=== PATIENT | female | born 1970 | race Caucasian/White ===

== ENCOUNTER 2016-09-29 09:09 | Emergency (ER) | payer OTHER ==
[2016-09-29] MEDS ORDERED: Ibuprofen TAB* 600 MG PO ONE (09:43)
--- NOTE | 2016-09-29 10:18 | UC ---
General HPI - HPI Summary HPI Summary: fell down stairs 3 days ago, right back pain into the the shoulder. She fell down 3 or 4 outdoor steps and has pain in right upper back and right low back. no bruising, no bleeding. tool a flexiril last night. sx worse yesterday and today. On nucynta for chronic pain for right hanstring tear 4 yrs ago (whil slipping on grass into a split). She was not offered surgery. Had been on pain meds and noted that she was getting addicted and she stopped them cold turkep about 1 yr ago. She met the pain Dr about 1 mo ago and started her on nucynta a nd flexiril with good relief. She does note that she is more prone to falling since the hanstring tear. no parasthesias in arms or legs. - History of Current Complaint Chief Complaint: UCBackPain Stated Complaint: BACK & SHOULDER PAIN-FALL Time Seen by Provider: 09/29/16 10:07 - Allergy/Home Medications Allergies/Adverse Reactions: Allergies Allergy/AdvReac Type Severity Reaction Status Date / Time Penicillin V Allergy Mild Unknown Verified 09/29/16 09:26 [From Yvette VK] Reaction Details Home Medications: Home Medications Tapentadol HCl [Nucynta] 50 mg PO QID 09/29/16 [History Confirmed 09/29/16] PMH/Surg Hx/FS Hx/Imm Hx Previously Healthy: Yes Endocrine History Of: Denies: Diabetes Cardiovascular History Of: Denies: Cardiac Disorders Respiratory History Of: Denies: Asthma - Surgical History Surgical History: Yes Surgery Procedure, Year, and Place: appendectomy 1986; left wrist benign surgeries x 2. Tubal ligation, Cholecystectomy 02/2015 - Family History Known Family History: Positive: Hypertension - Social History Alcohol Use: Rare Substance Use Type: None Smoking Status (MU): Never Smoked Tobacco Household Exposure Type: Cigarettes - Immunization History Most Recent Influenza Vaccination: [id number] Review of Systems Constitutional: Negative Skin: Negative Eyes: Negative ENT: Negative Respiratory: Negative Cardiovascular: Negative Gastrointestinal: Negative Genitourinary: Negative Motor: Other - pain right upper and lower back Neurovascular: Negative Musculoskeletal: Negative Neurological: Negative Psychological: Negative All Other Systems Reviewed And Are Negative: Yes Physical Exam Triage Information Reviewed: Yes Appearance: Well-Nourished - very pleasant., Pain Distress Vital Signs: Initial Vital Signs Temp 98.4 F 09/29/16 09:20 Pulse 101 09/29/16 09:20 Resp 18 09/29/16 09:20 BP 148/81 09/29/16 09:20 Pulse Ox 100 09/29/16 09:20 Vital Signs Reviewed: Yes Eye Exam: Normal ENT Exam: Normal Neck exam: Normal Neck: Positive: Supple, Nontender, No Lymphadenopathy Respiratory Exam: Normal Respiratory: Positive: Lungs clear, Normal breath sounds, No respiratory distress, No accessory muscle use, Other: - No decrease in breath sounds in areas of pain/concern.. Negative: Plerual rub Cardiovascular Exam: Normal Cardiovascular: Positive: RRR, No Murmur, Pulses Normal, Brisk Capillary Refill Abdomen Description: Positive: Nontender, Soft Musculoskeletal: Positive: Other: - slight tenderness in rt upper and lower back. FROM Rt arm and rt leg. strength and sensation are grossly intact with brisk CR. no bruising, no erythema, cool to touch. no point tenderness over T or lumbar spine. Neurological Exam: Normal Psychological Exam: Normal Skin Exam: Normal Course/Dx - Course Course Of Treatment: Xray of rt ribs, t spine & L spine are read as negative. cont with flexiril and nucynta as prescribed. Ice as it helps more than heat. - Differential Dx - Multi-Symptom Provider Diagnoses: Rt upper and lower back strains/contussions. Discharge - Discharge Plan Condition: Stable Disposition: HOME Patient Education Materials: Muscle Spasm (ED) Forms: *Work Release Referrals: Vahid WOODS,Luciano [Primary Care Provider] - Additional Instructions: We have given you a list of PCPs to go to for follow up. Xrays were read as negative. You can call your pain specialist to make hermila eit is ok for you to continue to take ibuprofen 600mgs every 8 hrs as needed. The cyclobenzaprine and nucynta will help as well. Ice and rest. I think your symptoms will get better over the next few days.
--- NOTE | 2016-09-29 11:23 | RAD ---
HISTORY: Right thoracic pain, subacute trauma COMPARISONS: None VIEWS: 4, Frontal view of the chest with frontal and oblique views of the right hemithorax. FINDINGS: There is no displaced rib fracture or pneumothorax. The visualized lungs are clear. IMPRESSION: NO DISPLACED RIB FRACTURE OR PNEUMOTHORAX
--- NOTE | 2016-09-29 11:24 | RAD ---
HISTORY: The right thoracic pain COMPARISONS: None VIEWS: 2, Frontal and lateral views of the thoracic spine. FINDINGS: ALIGNMENT: The alignment is normal. VERTEBRAL BODIES: The vertebral body heights are normal. The interpedicular distances are normal. There is mild anterolateral marginal osteophyte formation. JOINTS: Unremarkable. INTERVERTEBRAL DISCS: There is diffuse loss of intervertebral disc height. SOFT TISSUE: Unremarkable OTHER: The visualized lungs are clear. IMPRESSION: MILD DEGENERATIVE CHANGES
--- NOTE | 2016-09-29 11:29 | RAD ---
HISTORY: Thoracic pain COMPARISONS: None VIEWS: 4 , Frontal, lateral, and bilateral oblique views of the lumbar spine. FINDINGS: ALIGNMENT: The alignment is normal. VERTEBRAL BODIES: The vertebral body heights are normal. The interpedicular distances are normal. There is mild anterolateral marginal osteophyte formation. JOINTS: There is facet hypertrophic change INTERVERTEBRAL DISCS: There is diffuse loss of intervertebral disc height. SOFT TISSUE: Unremarkable. OTHER: The pelvis is unremarkable. The lung bases are clear. Surgical clips are noted within the pelvis IMPRESSION: MILD DEGENERATIVE CHANGES
[2016-09-29 12:05] VITALS: BP 149/95
== END 2016-09-29 12:05 | disposition home or self-care (01) ==
LOC: UCCORT 09:09
DX: S29.012A Strain of muscle and tendon of back wall of thorax, initial encounter (principal); S39.012A Strain of muscle, fascia and tendon of lower back, initial encounter; S20.229A Contusion of unspecified back wall of thorax, initial encounter; W10.9XXA Fall (on) (from) unspecified stairs and steps, initial encounter; Y93.9 Activity, unspecified; Y92.9 Unspecified place or not applicable; Z88.0 Allergy status to penicillin; Z90.49 Acquired absence of other specified parts of digestive tract; Z77.22 Contact with and (suspected) exposure to environmental tobacco smoke (acute) (chronic)
CPT/HCPCS: 72070; 72110; 99212; A9270-GY; G0463

== ENCOUNTER 2017-10-29 11:51 | Emergency (ER) | payer OTHER ==
[2017-10-29 12:29] VITALS: BP 157/97
--- NOTE | 2017-10-29 13:08 | UC ---
Complaint Female HPI - HPI Summary HPI Summary: Pt c/o sudden onset of dysuria yesterday morning. Pt states "it feels like razor blades when I urinate". Pt began taking OTC AZO. - History Of Current Complaint Chief Complaint: UCGU Stated Complaint: URINARY Time Seen by Provider: 10/29/17 12:43 Hx Obtained From: Patient Hx Last Menstrual Period: unknown due to micronor control ?: No Onset/Duration: Sudden Onset, Lasting Days, Still Present Timing: Constant Severity Initially: Mild Severity Currently: Moderate Pain Intensity: 8 Character: Sharp, Burning Aggravating Factor(s): Urination Associated Signs And Symptoms: Positive: Negative - Risk Factors Ectopic Risk Factor: Negative Ovarian Torsion Risk Factor: Negative - Allergies/Home Medications Allergies/Adverse Reactions: Allergies Allergy/AdvReac Type Severity Reaction Status Date / Time penicillin V Allergy Mild Unknown Verified 10/29/17 12:30 Reaction Details PMH/Surg Hx/FS Hx/Imm Hx Previously Healthy: Yes - Surgical History Surgical History: Yes Surgery Procedure, Year, and Place: appendectomy 1986; left wrist benign surgeries x 2. Tubal ligation, Cholecystectomy 02/2015 - Family History Known Family History: Positive: Hypertension - Social History Occupation: Employed Full-time Lives: With Family Alcohol Use: Occasionally Alcohol Amount: 1 drink per week Substance Use Type: None Smoking Status (MU): Never Smoked Tobacco Have You Smoked in the Last Year: No Household Exposure Type: Cigarettes - Immunization History Most Recent Influenza Vaccination: [id number] Review of Systems Constitutional: Negative Skin: Negative Eyes: Negative ENT: Negative Respiratory: Negative Cardiovascular: Negative Gastrointestinal: Negative Genitourinary: Dysuria, Frequency, Urgency Motor: Negative Neurovascular: Negative Musculoskeletal: Negative Neurological: Negative Psychological: Negative Is Patient Immunocompromised?: No All Other Systems Reviewed And Are Negative: Yes Physical Exam Triage Information Reviewed: Yes Appearance: Well-Appearing Vital Signs: Initial Vital Signs Temp 98.5 F 10/29/17 12:21 Pulse 96 10/29/17 12:21 Resp 18 10/29/17 12:21 BP 157/97 10/29/17 12:21 Pulse Ox 98 10/29/17 12:21 Vital Signs Reviewed: Yes Eye Exam: Normal ENT: Positive: Hearing grossly normal Dental Exam: Normal Neck exam: Normal Respiratory Exam: Normal Cardiovascular Exam: Normal Abdominal Exam: Normal Musculoskeletal Exam: Normal Neurological Exam: Normal Psychological Exam: Normal Skin Exam: Normal Complaint Female Dx - Differential Dx/Diagnosis Differential Diagnosis/HQI/PQRI: Urinary Tract Infection Provider Diagnoses: Dysuria Discharge - Sign-Out/Discharge Documenting (check all that apply): Discharge/Admit/Transfer - Discharge Plan Condition: Stable Disposition: HOME Prescriptions: Sulfamethox/Trimethoprim DS* [Bactrim DS 800/160 TAB*] 1 tab PO Q12H #10 tab Patient Education Materials: Dysuria (ED) Referrals: Jordan Guerrero MD [Primary Care Provider] - If Needed - Billing Disposition and Condition Condition: STABLE Disposition: HOME
== END 2017-10-29 13:16 | disposition home or self-care (01) ==
LOC: UCCORT 11:51
DX: R30.0 Dysuria (principal); Z88.0 Allergy status to penicillin
CPT/HCPCS: 87077; 87086; 87186; 99212; G0463

== ENCOUNTER 2018-05-20 11:04 | Emergency (ER) | payer OTHER ==
--- OUTSIDE RECORDS SUMMARY | 2018-05-20 11:18 | XMS REPORT ---
:1970 External Reference #:[id number] Author Organization [facility] Address [address], [address] [place] [address] Phone [phone] Care Team Providers Name Role Phone Jordan Guerrero MD Care Team Information Chicken Hanger Unavailable Jordan Guerrero MD Primary Care Physician Unavailable Payers Type Date Identification Numbers Payment Provider Subscriber Commercial Effective: Policy Number: Lifetime Benefit Mari Garcia 2016 [id number] Solution PayID: Starriser [address] [address] [place] [address] Commercial Effective: 2006 Policy Number: Lifetime Benefit Mari Garcia [id number] Solution Expires: 2016 PayID: Starriser [address] [address] [place] [address] Problems Date Description Provider Status Onset: 04/27/2014 Acute cholecystitis Rafal Paredes MD Active Onset: 08/11/2014 Arthralgia of the pelvic region and Rafal Alas, D.O. Active thigh Onset: 02/12/2018 Constipation Tristen Osborne MD Active Onset: 02/12/2018 Right lower quadrant pain Tristen Osborne MD Active Family History Date Family Member(s) Problem(s) Comments General Stroke General Lung Cancer Father 76 Father due to Diabetes () Father Parkinson's Disease Mother 75 Mother Diverticulosis First Sister Hypothyroidism First Sister Ovarian Cancer DIAGNOSED AT AGE 35 First Sister Hypertension Maternal Aunts due to Ovarian Cancer () - AGE 42 Social History Type Date Description Comments Marital Status Single Lives With Home Environment Lives With fiance Diet Patient follows no dietary restrictions 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 Abuse No history of abuse Cigarette Use Never Smoked Cigarettes Smokeless Tobacco Never Used Smokeless Tobacco ETOH Use Currently consumes alcohol socially Recreational Drug Use Denies Drug Use Smoking Patient has never smoked Daily Caffeine Consumes on average 2 cups of regular coffee per day Enjoy Exercising Patient enjoys exercising Currently Active Patient is currently sexually active Contraceptive Methods Current methods include oral contraceptives Age 1st [place] 18 Years Old # Partners in a Lifetime 2 # Partners in a Lifetime Has been with current partner 15 YEARS WITH CURRENT for over 10 years PARTNER STD's No STD History Allergies, Adverse Reactions, Alerts Date Description Reaction Status Severity Comments 02/12/2018 Penicillin active 06/20/2010 NKDA inactive Medications Medication Date Status Form Strength Qnty SIG Indications Ordering Provider Colace 03/12 Active Capsules 100mg 60cap 1 by mouth K59.00 s daily and can Tristen, take twice a MD day as needed Lactulose 03/12 Active Solution 20GM/30ML 90ml by mouth K5. three times a Tristen day as needed Lactulose 02/12 Active Solution 20GM/30ML 900ml 15 K5 milliliters , Tristen by mouth twice a day as needed Cyclobenzaprine 12/03 Active Tablets 5mg 40tab 1 [facility] mouth [facility] and kim Skinner MD, FACS Nucynta Active Tablets 50mg 1 tab every 6 Unknown /0000 hours as needed. Senna S Active Tablets 8.6-50mg 1 tabl by Unknown /0000 mouth twice a day as needed for constipation Golytely 02/12 Hx Solution 236gm 4000m drink half R10. Rec l the evening Tristen, - before and 03/12 half the morning of the procedure (1 cup every 10') Dulcolax 02/12 Hx Tablets 5mg 4tabs [address] pura lamb 8pm Tristen, - the day 03/12 before the procedure Citroma 02/12 Hx Solution 1.745GM/3 296ml drink 1 R10. 0ML bottle at Tristen - 12pm 03/12 (noon)the day before the procedure Colace 02/12 Hx Capsules 100mg 60cap 1 by mouth K59.00 Dylon s daily and Tristen simental, - take twice a MD 03/12 day as needed Nortriptyline 08/07 Hx Capsules 25mg 30cap take 1 tab po Alas, s qhs Bradly Theodore.O. 02/12 Meloxicam 05/05 Hx Tablets 15mg 30tab 1 by mouth Alas, s every day Tremayne TheodoreO. 02/12 Hydrocodone-Acet 04/06 Hx Tablets 5-325mg 30tab 1 by mouth [place], aminophen s every 4 hours Rony, as needed Sav pain Skelaxin 12/23 Hx Tablets 800mg 60tab 1 po tid as Lawsing, s needed muscle Lorne Skinner, - spasms , FACS 01/27 Hydrocodone/Acet 12/11 Hx Tablets 5-325mg 40tab 1 by mouth Lawsing, aminophen s every 6 hours Lorne Skinner, - as needed , FACS 04/06 pain Naproxen 12/03 Hx Tablets 500mg 60tab 1 by mouth Lawsing, s twice a day Lorne Skinner, - with food , FACS 02/12 Prenate 07/07 Hx Capsules 28-0.6-0. 60cap 1 po qd [place], 4-340mg s Miri Wolf M.D. 07/07 Norethindrone 07/07 Hx Tablets 0.35mg 1Pack 1 po qd [place] Miri Wolf M.D. 02/12 Xanax Hx Tablets 1mg 1 tab po q hs Unknown /0000 - 02/12 Vital Signs Date Vital Result Comment 03/12/2018 BP Systolic Sitting Left Arm 160 mmHg BP Diastolic Sitting Left Arm 100 mmHg Heart Rate 78 /min Respiratory Rate 16 /min Height 64.5 inches 5'4.50" Weight 182.00 lb BMI (Body Mass Index) 30.8 kg/m2 BSA (Body Surface Area) 1.89 m2 Collins body weight in kilograms 56 02/12/2018 BP Systolic Sitting Left Arm 150 mmHg BP Diastolic Sitting Left Arm 100 mmHg Heart Rate 76 /min Respiratory Rate 16 /min Height 64.5 inches 5'4.50" Weight 179.00 lb BMI (Body Mass Index) 30.2 kg/m2 BSA (Body Surface Area) 1.88 m2 Collins body weight in kilograms 56 12/11/2013 BP Systolic Sitting Left Arm 134 mmHg BP Diastolic Sitting Left Arm 76 mmHg Height 64.5 inches 5'4.50" Weight 167.00 lb BMI (Body Mass Index) 28.2 kg/m2 BSA (Body Surface Area) 1.82 m2 06/20/2010 Heart Rate 69 /min Respiratory Rate 20 /min Height 63 inches 5'3" Weight 190.00 lb BMI (Body Mass Index) 33.7 kg/m2 Last Menstrual Period [id number] Results Test Date Test Result H/L Range Note Laboratory test finding 02/25/2018 Urine HCG NEGATIVE Negative 1, 2 (Qualitative) CBS W/Automated Diff 04/20/2014 White Blood Count 7.6 K/uL 3.1-10.7 Red Blood Count 4.71 M/uL 3.90-5.40 Hemoglobin 14.3 gm/dL 11.6-15.8 Hematocrit 41.2 % 36.0-46.1 Mean Cell Volume 87.5 fl 80.9-99.0 Mean Corpuscular HGB 30.4 pg 25.9-32.7 Mean Corpuscular HGB Conc 34.7 g/dL High 30.8-34.3 Platelet Count 307 K/uL 155-360 Red Cell Distri Width SD 39.8 fl 3-47 Red Cell Distri Width %CV 12.6 % 11.7-14.4 Mean Platelet Volume 9.9 fL 8.9-12.4 Neut% 76.4 % High 40.4-72.8 Lymph % 12.5 % Low 17.0-46.1 [place] % 8.4 % 4.3-13.2 Eo% 2.6 % 0.0-6.6 Bas% 0.1 % 0.0-1.1 Neut# 5.80 K/uL 1.0-7.0 Lymph # 0.95 K/uL 0.8-3.4 [place] # 0.64 K/uL 0.3-0.9 Eos # 0.20 K/uL 0.0-0.5 Baso # 0.01 K/uL 0.0-0.1 Comprehensive Metabolic Panel 04/20/2014 Glucose 126 mg/dL High 74-106 BUN 9 mg/dL 7-18 Creatinine 0.8 mg/dL 0.6-1.3 Glom Filtration Rate, Estimate >60 mL/min >60 If >60 mL/min >60 3 BUN/Creat 11.2 ratio Sodium 138 mmol/L 136-145 Potassium 3.7 mmol/L 3.5-5.1 Chloride 100 mmol/L 98-107 Carbon Dioxide 31 mmol/L 21-32 Anion Gap 11 mEq/L 8-16 Calcium 9.9 mg/dL 8.5-10.1 Total Protein 8.1 g/dL 6.4-8.2 Albumin 3.5 g/dL 3.4-5.0 Globulin 4.6 g/dL High 1.9-4.3 Alb/Glob 0.8 ratio Bilirubin,Total 0.4 mg/dL 0.2-1.0 Sgot/Ast 45 U/L High 15-37 SGPT/Alt 140 U/L High 12-78 Alkaline Phosphatase 81 U/L 45-117 Laboratory test finding 04/17/2014 Gallbladder See Note 4 Laboratory test finding 04/17/2014 Urine HCG (Qualitative) NEGATIVE Negative 5 Urine Screen 12/09/2013 Urine Color YELLOW Yellow Urine Clarity TURBID Clear Urine Glucose - Dipstick NEGATIVE mg/dL Negative Urine Bilirubin - Dipstick SMALL High Negative Urine Ketone NEGATIVE mg/dL Negative Urine Specific [place] >=1.030 1.010-1.030 Urine Blood NEGATIVE Negative Urine PH 5.5 Low 6.5-7.5 Urine Protein - Dipstick TRACE mg/dL Negative Urine Urobilinogen - Dipstick 0.2 E.U./dL 0.2-1.0 Urine Nitrite - Dipstick NEGATIVE Negative Urine Leuk Esterase NEGATIVE Negative Laboratory test finding 12/09/2013 Urine Culture See Note 6 Laboratory test finding 06/20/2010 ThinPrep Pap: Endocervix Smear See Note 7 1 RIGHT LOWER PAIN 2 FIRST MORNING SPECIMENS GENERALLY CONTAIN THE HIGHEST CONCENTRATION OF HCG AND ARE RECOMMENDED FOR EARLY DETECTION OF . Method: [employer] One-Step Immunoassay 3 Note: Persistent reduction for 3 months or more in an eGFR <60 mL/min/1.73 m2 defines CKD. Patients with eGFR values >/=60 mL/min/1.73 m2 may also have CKD if evidence of persistent proteinuria is present. The original MDRD equation for estimated GFR is not valid for patients less than 18 years of age. Additional information may be found at www.kdoqi.org. 4 OPERATION/PROCEDURE Lap. robby. DIAGNOSIS: "GALLBLADDER, CHOLECYSTECTOMY": CHRONIC CHOLECYSTITIS, AND CHOLELITHIASIS. NO EVIDENCE OF DYSPLASIA NOR NEOPLASIA APPRECIATED. KUSUM/karen GROSS The specimen is received in a single container additionally labeled "GALLBLADDER". This contains a grossly recognizable unopened gallbladder. This has a red shiny smooth surface and overall measures 8.6 x 2.9 x 2.0 cm. in overall dimensions. There is a visible wall defect. The wall has a uniform thickness of 0.3 cm. The mucosal surface is red, velvety smooth and unremarkable. Trabeculations are noted. No mars reticular discoloration of cholesterolosis is noted. One stone is noted with a diameter up to 2.2 cm., the stone obstructs the neck. Customer Retention Specialist sections are submitted within a single cassette. /clf MICROSCOPIC Sections show gallbladder mucosa lined by columnar epithelium with focal synechia. The submucosa has a mild infiltrate of lymphocytes and plasma cells. The muscular wall is slightly fibrotic and hypertrophied. PRE OPERATIVE DIAGNOSIS Cholelithiasis REVIEW CODE CODE: I Signed Electronically signed LIZ MAYORGA MD 04/20/14 1426 5 FIRST MORNING SPECIMENS GENERALLY CONTAIN THE HIGHEST CONCENTRATION OF HCG AND ARE RECOMMENDED FOR EARLY DETECTION OF . 6 WRONG TEST ORDERED 7 CYTOLOGY SCREENER Screened by: JANINE Garza(ASCP) PAP: FINAL REPORT SPECIMEN ADEQUACY: SPECIMEN SATISFACTORY FOR INTERPRETATION INTERPRETATION: NEGATIVE FOR INTRAEPITHELIAL LESION OR MALIGNANCY COMMENT: BENIGN CELLULAR CHANGES ASSOCIATED WITH INFLAMMATION THINPREP PREPARED PAP SLIDE # Prepared in the Cytology laboratory from the ThinPrep sample is 1 ThinPrep smear. PAP ACCESSI QUESTIONNAIRE 07/18 PERTINENT CLINICAL HISTORY FOR PAP (PRINCIPAL STATISTICAL SCIENTIST) CYTOLOGY (Check all that apply): ? Post ? Menopause? LMP date: 06/13/10 Last Pap: at [facility]? Abnormal Pap? If Yes, date: 05/2009 If patient had related surgical procedure: Related Therapy: Significant Clinical History: V72.31 DISCLAIMER: The Pap smear is a screening test and not a diagnostic procedure. False negative and false positive results can and do occur for a number of reasons. Regular screening provides an aid in detecting treatable cervical abnormalities, but should not be used as the only means for detecting cervical dysplasia and carcinoma. LIZ Pedraza MD 06/22/10 Procedures Date CPT Code Description Status Comment 02/25/2018 60789 Sigmoidoscopy Flexible Completed 02/25/2018 Colonoscopy Completed Document: 02/25/18 - Operative Report-Colon Document: 02/25/18 - Colonoscopy Pics 04/17/2014 57097 Laparoscopy; cholecystectomy Completed 04/17/2014 42962 Anesthesia, Upper Abdomen Completed Surgery Not Otherwise Spec 04/11/2012 61541 Echocardiogram Complete Completed 06/30/2010 Mammogram Completed Encounters Type Date Location Provider CPT E/M Dx Office Visit 03/12/2018 3:15p [place] [address] K59.00 Office Visit 02/12/2018 9:15[place] [address] R10.31 K59.00 Office Visit 08/11/2014 8:30a Orthopaedic Office Rafal Alas D.O. 86966 719.45 729.2 Office Visit 05/05/2014 9:15a Orthopaedic Office Rafal Alas D.O. 50396 719.45 728.89 Office Visit 03/27/2014 8:45a Orthopaedic Office Adri Dolan, 93820 719.45 RPAC 924.00 Office Visit 01/27/2014 2:45p Orthopaedic Office Adri Dolan, 79806 719.45 RPAC 924.00 E888.9 Office Visit 12/26/2013 11:00a Orthopaedic Office Adri Dolan, 48806 719.45 RPAC 924.00 Office Visit 12/12/2013 11:15a Orthopaedic Office Adri Dolan, 52863 E888.9 RPAC 719.45 924.00 Office Visit 12/11/2013 11:15a Orthopaedic Office Adri Dolan, 66888 E888.9 RPAC 719.45 Office Visit 12/03/2013 2:30p Orthopaedic Office Adri Dolan, 57297 719.45 RPAC E888.9 Office Visit 04/11/2012 1:52p Cardiology Office Nikos Ramirez, [address]39 786.50 Sav, [facility] Plan of Care 03/12/2018 - Tristen Osborne MDK59.00 Constipation, unspecifiedNew Medication: Colace 100 mgLactulose 20 GM/30MLComments:plan needs repeat colonosocpy but not until moving better1) - start colace 1 tablet twice a day2) - laCTULOSe increase to tid until regular bms daily3) add fiber 1 spoonful -plan for colonoscopy when bms are more regular
--- NOTE | 2018-05-20 11:54 | UC ---
Knee Pain HPI - HPI Summary HPI Summary: 47 yo female presents with RIGHT knee pain. She tells me that about 1 week ago she was going down stairs and felt a "twinge" and "pop" in her right knee. Did not fall or have a specific injury. Since that time her right knee has become more painful, swollen, and feels unstable. She has been RICEing as well as taking ibuprofen for discomfort with mild relief. She has a hx of LEFT knee/ hamstring problems, but no hx on the RIGHT. Denies numbness or tingling. - History of Current Complaint Stated Complaint: RIGHT KNEE INJURY Time Seen by Provider: 05/20/18 11:54 Hx Obtained From: Patient Hx Last Menstrual Period: unknown due to micronor control Onset/Duration: Sudden Onset Severity Initially: Mild Severity Currently: Moderate Pain Intensity: 5 Pain Scale Used: 0-10 Numeric - Allergies/Home Medications Allergies/Adverse Reactions: Allergies Allergy/AdvReac Type Severity Reaction Status Date / Time penicillin V Allergy Mild Unknown Verified 05/20/18 12:22 Reaction Details PMH/Surg Hx/FS Hx/Imm Hx - Additional Past Medical History Additional PMH: None - Surgical History Surgical History: Yes Surgery Procedure, Year, and Place: appendectomy 1986; left wrist benign surgeries x 2. Tubal ligation, Cholecystectomy 02/2015 - Family History Known Family History: Positive: Hypertension - Social History Occupation: Employed Full-time Lives: With Family Alcohol Use: None Alcohol Amount: 2 drinks per week Substance Use Type: None Smoking Status (MU): Never Smoked Tobacco Have You Smoked in the Last Year: No Household Exposure Type: Cigarettes - Immunization History Most Recent Influenza Vaccination: [id number] Review of Systems All Other Systems Reviewed And Are Negative: Yes Constitutional: Positive: Negative Skin: Positive: Negative Respiratory: Positive: Negative Cardiovascular: Positive: Negative Neurovascular: Positive: Negative Musculoskeletal: Positive: Other: - Right knee pain Neurological: Positive: Negative Psychological: Positive: Negative Physical Exam - Summary Physical Exam Summary: GENERAL: NAD. WDWN. No pain distress. SKIN: No rashes, sores, lesions, or open wounds. CHEST: No accessory muscle use. Breathing comfortably and in no distress. CV: . Pulses intact popliteal, PT, and DP. Cap refill <2seconds MSK: Right knee: Moderate TTP about joint line and posterior knee. FROM. Mild edema. Strength 5/5. No patella apprehension. Negative Lilian, A/P drawer, Luis A, and varus/valgus stress. NEURO: Alert. Sensations intact and symmetric B/L LEs PSYCH: Age appropriate behavior. Triage Information Reviewed: Yes Knee Pain Course/Dx - Course Course Of Treatment: XR right knee: IMPRESSION: JOINT EFFUSION. Advised to continue RICE and at home pain medication/ibuprofen. F/u with PT and Orthopedics. - Differential Dx/Diagnosis Provider Diagnoses: Right knee pain and swelling Discharge - Sign-Out/Discharge Documenting (check all that apply): Patient Departure All imaging exams completed and their final reports reviewed: Yes - Discharge Plan Condition: Stable Disposition: HOME Patient Education Materials: Knee Pain (ED), Meniscus Tear (ED) Referrals: Jordan Guerrero MD [Primary Care Provider] - Jose J Clark MD [Medical Doctor] - As Soon As Possible Additional Instructions: If you develop a fever, shortness of breath, chest pain, new or worsening symptoms - please call your PCP or go to the ED. Your blood pressure was high at todays visit. Please see your primary provider within 4 weeks for recheck and re-evaluation. 1) Continue to rest, ice, and elevate your knee 2) Continue taking your pain medications and ibuprofen for discomfort 3) Please call Orthopedics at the number below to schedule a follow up appointment as soon as possible 4) Also, please call Physical Therapy to schedule a follow up appointment - Billing Disposition and Condition Condition: STABLE Disposition: Home
[2018-05-20 12:22] VITALS: BP 150/97
== END 2018-05-20 12:39 | disposition home or self-care (01) ==
LOC: UCCORT 11:04
DX: M25.561 Pain in right knee (principal); M25.461 Effusion, right knee; X50.9XXA Other and unspecified overexertion or strenuous movements or postures, initial encounter; Y93.01 Activity, walking, marching and hiking; Y92.9 Unspecified place or not applicable; Z88.0 Allergy status to penicillin
CPT/HCPCS: 99211; G0463